=== PATIENT | female | born 1970 | race Caucasian/White ===

== ENCOUNTER 2021-02-05 22:27 | Inpatient (IN) | payer MEDICARE, BC ==
[~2021-02-05] VITALS: Ht 165.1 cm; Wt 71.8 kg
[2021-02-05] MEDS ORDERED: CLON-598 PO (22:58)
[2021-02-05] MEDS ORDERED: LAMO100 PO (22:58)
[2021-02-05] MEDS ORDERED: GABA-1201 PO (22:58)
[2021-02-05] MEDS ORDERED: TRAZ-257 PO (22:58)
[2021-02-05] MEDS ORDERED: DULO20CA27 PO (22:58)
[2021-02-05] MEDS ORDERED: ICOS1CAP PO (22:58)
[2021-02-05] MEDS ORDERED: ZIPR60CA2 PO (22:58)
[2021-02-05] MEDS ORDERED: PROP60CA31 PO (22:58)
[2021-02-05] MEDS ORDERED: NALT50TA6 PO (22:58)
[2021-02-05] MEDS ORDERED: ONDA-104 PO (22:58)
[2021-02-05] MEDS ORDERED: PRAZ2 PO (22:58)
[2021-02-05] MEDS ORDERED: BACL10TA PO (22:58)
[2021-02-05] MEDS ORDERED: METF-1211 PO (22:58)
[2021-02-05] MEDS ORDERED: BUPR200T34 PO (22:58)
[2021-02-05] MEDS ORDERED: 0.9% SODIUM CHLORIDE 10 ML SYRINGE IVP PRN (23:15)
[2021-02-05 23:31] LABS: BASOPHILS % (AUTO) 0.3 % (0.0-2.0); EOSINOPHILS % (AUTO) 2.7 % (1.0-6.0); HEMATOCRIT 40.5 % (36-46); HEMOGLOBIN 13.3 g/dL (12.0-16.0); LYMPHOCYTES # (AUTO) 2.9 K/uL (1.0-4.8); LYMPHOCYTES % (AUTO) 26.8 % (22.0-44.0); MEAN CORPUSCULAR HEMOGLOBIN 30.2 pg (26.0-34.0); MEAN CORPUSCULAR HGB CONC 32.8 G/dL (31.0-37.0); MEAN CORPUSCULAR VOLUME 92 fL (80-100); MONOCYTES # (AUTO) 0.7 K/uL (0.1-1.0); MONOCYTES % (AUTO) 6.5 % (2.0-9.0); NEUTROPHILS # (AUTO) 6.9 K/uL (1.8-7.7); NEUTROPHILS % (AUTO) 63.7 % (40.0-70.0); PLATELET COUNT (AUTO) 229 K/uL (150-450); RED BLOOD CELL COUNT(AUTO) 4.41 MIL/uL (4.00-5.20)
[2021-02-05 23:37] LABS: CALCIUM, TOTAL 9.3 mg/dL (8.8-10.5); CREATININE 1.17 mg/dL (0.60-1.30); POTASSIUM 4.5 mmol/L (3.5-5.1)
[2021-02-05 23:41] LABS: PROTHROMBIN TIME 10.4 SEC (9.4-11.6)
[2021-02-05 23:45] LABS: ALBUMIN 3.8 g/dL (3.4-5.0); BILIRUBIN,TOTAL 0.3 mg/dL (0.1-1.0); TOTAL PROTEIN, SERUM 7.6 g/dL (6.4-8.2)
[2021-02-06] MEDS ORDERED: SODIUM CHLORIDE 0.9% 1,000 ML IV ONE ×2 (00:15→04:30)
[2021-02-06] MEDS ORDERED: ONDANSETRON HCL 4 MG/2 ML VIAL IVP PRN (01:15)
[2021-02-06 01:28] LABS: COVID AG,FIA SOURCE NASOPHARYNGEAL
[2021-02-06] MEDS ORDERED: CefTRIAXone 1 GM/DEXTROSE 50 ML IV ONE (01:30)
[2021-02-06] MEDS ORDERED: AZITHROMYCIN 500 MG/NS 250 ML IV ONE (01:30)
[2021-02-06 01:46] LABS: ABG BASE EXCESS -1.5 mmol/L (-2.0-3.0); ABG CARBOXYHEMOGLOBIN 0.4 % (0.0-1.5); ABG METHEMOGLOBIN 0.1 % (0.0-1.5); ABG OXYGEN CONTENT 18.5 mL/dL (15.0-23.0); ABG OXYGEN SATURATION 98.2 % (95.0-98.0); ABG OXYHEMOGLOBIN 97.7 % (94.0-100.0); ABG PCO2 46 mmHg (35-45); ABG PH 7.337 (7.35-7.450); ABG TOTAL HEMOGLOBIN 13.3 G/dL (12.0-18.0); O2 DEVICE,BLOOD GAS CANNULA (ROOM AIR); PO2, ARTERIAL BG 126.3 mmHg (84.0-92.0); SITE, BLOOD GAS RT RADIAL; SOURCE, BLOOD GAS ARTERIAL; TEMPERATURE, FAHRENHEIT, BG 98.6 FAHREN (96.0-98.6)
[2021-02-06] MEDS ORDERED: PIPERACILLIN/TAZO 3.375 GM/D5W 50 ML IV ONE (03:30)
[2021-02-06 07:57] LABS: APPEARANCE,URINE CLEAR (CLEAR); BILIRUBIN,URINE NEGATIVE (NEGATIVE); GLUCOSE, URINE (UA) NEGATIVE (NEGATIVE); KETONES,URINE NEGATIVE (NEGATIVE); LEUKOCYTE ESTERASE ,URINE MODERATE (NEGATIVE); NITRATE,URINE NEGATIVE (NEGATIVE); OCCULT BLOOD,URINE TRACE (NEGATIVE); PROTEIN,URINE NEGATIVE (NEGATIVE); UROBILINOGEN,URINE 0.2 mg/dL (<=1.0)
[2021-02-06] MEDS: FAMOTIDINE 20 MG TABLET PO SCH (08:10)
[2021-02-06 08:13] LABS: BACTERIA,URINE None Seen /HPF (None Seen); RBC,URINE 0-2 /HPF (0-2)
[2021-02-06 08:14] LABS: SQUAMOUS EPITHELIAL CELL,UR Few /LPF (None Seen)
[2021-02-06] MEDS ORDERED: INSULIN LISPRO 100 UNITS/ML SQ PRN (08:15)
[2021-02-06] MEDS ORDERED: DEXTROSE 50%-WATER 25 GM/50 ML SYRINGE IVP PRN (08:15)
[2021-02-06] MEDS ORDERED: MAGNESIUM HYDROXIDE SUSPENSION 30 ML UDCUP PO PRN (08:15)
[2021-02-06] MEDS: ClonazePAM 1 MG TABLET PO SCH ×3 (09:15→21:13)
[2021-02-06] MEDS: LamoTRIgine 100 MG TABLET PO SCH ×3 (09:15→21:13)
[2021-02-06 18:06] VITALS: BP 156/76
[2021-02-06 19:46] VITALS: BP 112/61
[2021-02-06 23:27] VITALS: BP 131/71
[2021-02-07] MEDS ORDERED: SODIUM CHLORIDE 0.9% 250 ML IV ONE (00:27)
[2021-02-07] MEDS ORDERED: CefTRIAXone 1 GM/DEXTROSE 50 ML IV SCH (01:00)
[2021-02-07] MEDS ORDERED: AZITHROMYCIN 500 MG/NS 250 ML IV SCH (02:00)
[2021-02-07 04:12] VITALS: BP 122/72
[2021-02-07 06:24] LABS: GLUCOMETER DEV NAME(LOC) 5S.1; GLUCOSE,POINT OF CARE 98 MG/DL (70-110)
[2021-02-07 06:26] LABS: GLUCOMETER DEV NAME(LOC) 5S.1; GLUCOSE,POINT OF CARE 105 MG/DL (70-110)
[2021-02-07 07:21] VITALS: BP 114/68
[2021-02-07] MEDS: ClonazePAM 1 MG TABLET PO SCH (08:36)
[2021-02-07] MEDS: FAMOTIDINE 20 MG TABLET PO SCH (08:36)
[2021-02-07] MEDS: LamoTRIgine 100 MG TABLET PO SCH (08:36)
[2021-02-07 11:23] VITALS: BP 116/75
[2021-02-07 15:22] VITALS: BP 127/75
[2021-02-09 12:03] LABS: GLUCOMETER DEV NAME(LOC) 5N.3; GLUCOSE,POINT OF CARE 90 MG/DL (70-110)
[2021-02-09 12:03] LABS: GLUCOMETER DEV NAME(LOC) 5N.3; GLUCOSE,POINT OF CARE 101 MG/DL (70-110)
[2021-02-09 12:03] LABS: GLUCOMETER DEV NAME(LOC) 5N.3; GLUCOSE,POINT OF CARE 115 MG/DL (70-110)
== END 2021-02-07 16:45 | disposition home or self-care (01) | DRG 91 ==
LOC: EMS 22:34 → 5S 02-06 16:06
PROVIDERS: ADMIT Internal Medicine; ATTEND Internal Medicine
PROC: 0HQ0XZZ Repair Scalp Skin, External Approach (ICD-10-PCS; principal; 2021-02-06)
DX: G92.9 Unspecified toxic encephalopathy (principal); J18.9 Pneumonia, unspecified organism; F31.9 Bipolar disorder, unspecified; E11.9 Type 2 diabetes mellitus without complications; G89.4 Chronic pain syndrome; Z20.822 Contact with and (suspected) exposure to COVID-19; F41.1 Generalized anxiety disorder; S01.01XA Laceration without foreign body of scalp, initial encounter; R55 Syncope and collapse; W06.XXXA Fall from bed, initial encounter; Z88.8 Allergy status to other drugs, medicaments and biological substances; Y93.89 Activity, other specified; Y92.89 Other specified places as the place of occurrence of the external cause; Y99.8 Other external cause status; Z98.1 Arthrodesis status
CPT/HCPCS: 36600; 70450; 71045; 72125; 80053; 81001; 82140; 82550; 82805; 82962; 83605; 83880; 84484; 85025; 85610; 85730; 86850; 86900; 86901; 87086; 93005; 97162; 99291; J0456; J0696; J2543; J7050; 36415-L1; 36415-TC